=== PATIENT | male | born 1985 | race African-American/Black ===

== ENCOUNTER 2020-10-01 16:41 | Emergency (ER) | payer OTHER ==
[~2020-10-01 16:41] MED LIST: 3IN1 COMMODE; ERY-TAB250 MG PO; METFORMIN HCL500 MG PO; ONDANSETRON ODT4 MG PO/SL
[2020-10-01 20:42] LABS: INFLUENZA A NAA NEGATIVE (NEGATIVE)
[2020-10-01 20:43] LABS: CORONAVIRUS 2019 SARS-COV-2 POSITIVE (NEGATIVE)
[2020-10-01 20:47] LABS: BASOPHIL 0.3 % (0-2); EOSINOPHIL 2.7 % (0-5); HCT 46.4 % (42.0-52.0); HGB 15.6 g/dl (13.2-18.0); LYMPHOCYTE 16.7 % (15-48); MCH 29.5 pg (25.0-31.0); MCHC 33.6 g/dL (32.0-36.0); MCV 87.9 fL (78.0-100.0); MONOCYTE 10.6 % (0-12); MPV 11.1 fL (6.0-9.5); NEUTROPHIL 69.4 % (41-80); NRBC 0; PLT 183 K/uL (150-400); RBC 5.28 M/uL (4.70-6.00); WBC 6.8 K/uL (4.0-10.5)
[2020-10-01 21:08] LABS: BUN/CREAT RATIO (CALC) 14.1 RATIO; CREATININE 0.92 mg/dL (0.67-1.17); POTASSIUM 4.8 mmol/L (3.5-5.1)
[2020-10-02] MEDS ORDERED: PREDNISONE 20MG20 MG PO (00:27)
[2020-10-02] MEDS ORDERED: ZPAK PO (00:27)
== END 2020-10-02 00:35 | disposition home or self-care (01) ==
LOC: FER 16:41
PROVIDERS: Nurse Practitioner Family
DX: Z23 Encounter for immunization (principal); U07.1 COVID-19; E11.43 Type 2 diabetes mellitus with diabetic autonomic (poly)neuropathy; K31.84 Gastroparesis
CPT/HCPCS: 36415; 71045; 80048; 85025; J7030; M0243; Q0244; U0002